=== PATIENT | male | born 1995 | race Caucasian/White ===

== ENCOUNTER 2021-08-19 17:13 | Emergency (ER) | payer MEDICAID ==
[~2021-08-19] VITALS: Ht 185.4 cm; Wt 79.5 kg
[2021-08-19 17:43] VITALS: BP 142/99
--- NOTE | 2021-08-19 17:53 | NUR ---
C COLLAR APPLIED AT THIS TIME PER MD ORDER
[2021-08-19] MEDS ORDERED: oxyCODONE/APAP 5-325mg tablet PO ONE (17:55)
[2021-08-19] MEDS ORDERED: TETanus/Pertussis (Acell)/Diphther VAC/PF (Tdap-Adult) 0.5ml syringe IMVAC ONE (17:55)
[2021-08-19] MEDS ORDERED: LIDOcaine 1% 30ml preserv. free vial IJ ONE (18:00)
[2021-08-19] MEDS ORDERED: iohexol 300mg/ml 100ml inj. ONE (18:05)
[2021-08-19 18:37] LABS: BASOPHILS % (AUTO) 0.3 % (0-1); EOSINOPHILS % (AUTO) 0.2 % (0-6); HEMATOCRIT 42.6 % (42.0-52.0); HEMOGLOBIN 15.1 g/dl (14.0-17.9); LYMPHOCYTES % (AUTO) 21.6 % (21-51); MEAN CORPUSCULAR HEMOGLOBIN 34.5 PG (27.0-31.0); MEAN CORPUSCULAR HGB CONC 35.4 g/dL (33.0-36.5); MEAN CORPUSCULAR VOLUME 97.4 FL (78-98); MEAN PLATELET VOLUME 8.3 FL (7.4-10.4); MONOCYTES # (AUTO) 1.3 X10'3 (0-0.9); MONOCYTES % (AUTO) 14.5 % (2-12); NEUTROPHILS # (AUTO) 5.8 X10'3 (1.8-7.7); NEUTROPHILS % (AUTO) 63.4 % (42-75); PLATELET COUNT 217 X10'3 (140-440); RED BLOOD COUNT 4.38 X10'6 (4.70-6.10); RED CELL DISTRIBUTION WIDTH 11.9 % (11.5-14.5); WHITE BLOOD COUNT 9.2 X10'3 (4.5-11.0)
[2021-08-19 19:00] LABS: ALANINE AMINOTRANSFERASE 78 U/L (12-78); ALBUMIN 4.6 G/DL (3.4-5.0); ALBUMIN/GLOBULIN RATIO 1.2 (1.1-1.5); ALKALINE PHOSPHATASE 100 IU/L (46-116); ANION GAP 8 (8-16); ASPARTATE AMINO TRANSFERASE 61 U/L (10-37); BILIRUBIN,TOTAL 1.4 MG/DL (0.1-1.0); BLOOD UREA NITROGEN 13 MG/DL (7-18); BUN/CREATININE RATIO 13.1 (5.4-32.0); CALCIUM 9.5 MG/DL (8.5-10.1); CHLORIDE 104 MMOL/L (99-107); CREATININE 0.99 MG/DL (0.60-1.10); GLUCOSE 105 MG/DL (70-104); POTASSIUM 3.8 MMOL/L (3.5-5.1); SODIUM 138 MMOL/L (135-145); TOTAL CARBON DIOXIDE 26.5 MMOL/L (24-32); TOTAL PROTEIN 8.3 G/DL (6.4-8.2); eGFR 90 ML/MIN
[2021-08-19] MEDS ORDERED: acetaminophen 325mg tablet PO ONE (19:10)
[2021-08-19] MEDS ORDERED: IBUP-1986 PO (20:43)
[2021-08-19] MEDS ORDERED: OXYC-145 PO ×2 (20:43→20:46)
== END 2021-08-19 21:07 | disposition home or self-care (01) ==
LOC: ER 17:14 → EEVIPCON 17:14 → ER 21:07
DX: S22.49XA Multiple fractures of ribs, unspecified side, initial encounter for closed fracture (principal); S00.431A Contusion of right ear, initial encounter; Y08.89XA Assault by other specified means, initial encounter; Y93.89 Activity, other specified; Y92.89 Other specified places as the place of occurrence of the external cause; Y99.8 Other external cause status
CPT/HCPCS: 36415; 70450; 70486; 71260; 72125; 74177; 80053; 85025; 85610; 90471; 90715; 99285; J3490; Q9967

== ENCOUNTER 2023-09-12 14:23 | Emergency (ER) | payer MEDICAID ==
[~2023-09-12] VITALS: Ht 185.4 cm; Wt 74.0 kg
[~2023-09-12 14:23] MED LIST: IBUP-1986 PO; OXYC-145 PO
[2023-09-12 14:39] VITALS: TEMP 98.6
[2023-09-12] MEDS ORDERED: iohexol 350MG/ML 100ml bottle IV ONE (14:53)
[2023-09-12] MEDS: metoclopramide 5 mg/ml inj IV ONE (15:39)
[2023-09-12] MEDS: diphenhydrAMINE 50 mg/ml inj IV ONE (15:39)
[2023-09-12] MEDS: morphine 4 MG/ML inj SYRINge IV ONE ×2 (15:39→17:42)
[2023-09-12 17:03] LABS: BASOPHILS % (AUTO) 0.3 % (0-1); EOSINOPHILS % (AUTO) 0.1 % (0-6); HEMATOCRIT 42.9 % (42.0-52.0); HEMOGLOBIN 15.2 g/dl (14.0-17.9); LYMPHOCYTES # (AUTO) 1.1 X10'3 (1.1-4.8); LYMPHOCYTES % (AUTO) 11.1 % (21-51); MEAN CORPUSCULAR HEMOGLOBIN 34.9 PG (27.0-31.0); MEAN CORPUSCULAR HGB CONC 35.4 g/dL (33.0-36.5); MEAN CORPUSCULAR VOLUME 98.6 FL (78-98); MEAN PLATELET VOLUME 8.1 FL (7.4-10.4); MONOCYTES # (AUTO) 0.8 X10'3 (0-0.9); MONOCYTES % (AUTO) 7.5 % (2-12); NEUTROPHILS # (AUTO) 8.3 X10'3 (1.8-7.7); PLATELET COUNT 229 X10'3 (140-440); RED BLOOD COUNT 4.36 X10'6 (4.70-6.10); RED CELL DISTRIBUTION WIDTH 12.3 % (11.5-14.5); WHITE BLOOD COUNT 10.3 X10'3 (4.5-11.0)
[2023-09-12 17:17] LABS: APTT 30 SECONDS (22-32); PROTHROMBIN TIME 10.8 SECONDS (9.0-12.0)
[2023-09-12 17:18] LABS: ALANINE AMINOTRANSFERASE 26 U/L (12-78); ALBUMIN 4.5 G/DL (3.4-5.0); ALKALINE PHOSPHATASE 125 IU/L (46-116); ANION GAP 11 (8-16); ASPARTATE AMINO TRANSFERASE 22 U/L (10-37); BILIRUBIN,TOTAL 1.1 MG/DL (0.1-1.0); BLOOD UREA NITROGEN 13 MG/DL (7-18); BUN/CREATININE RATIO 15.7 (10.0-20.0); CALCIUM 9.6 MG/DL (8.5-10.1); CHLORIDE 96 MMOL/L (99-107); CREATININE 0.83 MG/DL (0.60-1.10); GLUCOSE 108 MG/DL (70-104); POTASSIUM 3.7 MMOL/L (3.5-5.1); SODIUM 134 MMOL/L (135-145); TOTAL CARBON DIOXIDE 26.9 MMOL/L (24-32); TOTAL PROTEIN 8.9 G/DL (6.4-8.2); eCRCL 136 ML/MIN; eGFR > 90 ML/MIN
[2023-09-12 17:43] VITALS: BP 142/92; PULSE 69; RESP 16; O2SAT 97
== END 2023-09-12 17:45 | disposition home or self-care (01) ==
LOC: ER 14:24
DX: I61.9 Nontraumatic intracerebral hemorrhage, unspecified (principal); R51.9 Headache, unspecified; Z79.2 Long term (current) use of antibiotics; Z79.899 Other long term (current) drug therapy
CPT/HCPCS: 36415; 70450; 70496; 80053; 85025; 85610; 85730; 96374; 96375; 96376; 99291; J1200; J2270; J2765; J3490; Q9967

== ENCOUNTER 2024-01-25 01:53 | Emergency (ER) | payer MEDICAID ==
[~2024-01-25] VITALS: Ht 185.4 cm; Wt 84.1 kg
[2024-01-25 02:16] VITALS: BP 131/72; PULSE 98; RESP 18; O2SAT 95
[2024-01-25] MEDS: LIDOcaine 1% 30ml preserv. free vial IJ STA (03:39)
[2024-01-25] MEDS ORDERED: AMOX-117 PO (03:58)
[2024-01-25] MEDS ORDERED: HYDR-3965 PO (03:58)
[2024-01-25] MEDS: piperacillin/tazo 4.5gm/100ml 100 ML IV SCH (04:06)
[2024-01-25] MEDS: bacitracin 15gm ointment TP ONE (04:13)
== END 2024-01-25 04:19 ==
LOC: ER 01:53
DX: S71.151A Open bite, right thigh, initial encounter (principal); Z79.1 Long term (current) use of non-steroidal anti-inflammatories (NSAID); W54.0XXA Bitten by dog, initial encounter; Y93.89 Activity, other specified; Y92.89 Other specified places as the place of occurrence of the external cause; Y99.8 Other external cause status
CPT/HCPCS: 12005; 96374; 99283; J2543

== ENCOUNTER 2025-01-23 01:14 | Emergency (ER) | payer MEDICAID ==
[~2025-01-23] VITALS: Ht 185.4 cm; Wt 84.0 kg
[2025-01-23] MEDS: LIDOcaine 1% W/epiNEPHrine 1:100,000 20ml vial SQ ONE (02:03)
[2025-01-23] MEDS: LIDOCAINE 2% (20mg/ml) w/EPINEPHRINE 1:200,000-PF 10 ML inj. SQ ONE (02:03)
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
[2025-01-23 02:34] VITALS: BP 132/82; PULSE 98; RESP 16; TEMP 98.2; O2SAT 96
== END 2025-01-23 02:35 | disposition home or self-care (01) ==
LOC: ER 01:15
DX: S51.812A Laceration without foreign body of left forearm, initial encounter (principal); F32.A Depression, unspecified; F10.129 Alcohol abuse with intoxication, unspecified; Z72.89 Other problems related to lifestyle; Z79.899 Other long term (current) drug therapy; W26.8XXA Contact with other sharp object(s), not elsewhere classified, initial encounter; Y93.89 Activity, other specified; Y92.89 Other specified places as the place of occurrence of the external cause; Y99.8 Other external cause status; Y90.9 Presence of alcohol in blood, level not specified
CPT/HCPCS: 12002; 99283; J3490; A6258; A6446; A6449